=== PATIENT | female | born 2000 | race Caucasian/White ===

== ENCOUNTER 2018-05-20 08:48 | Day surgery (SDC) | payer OTHER ==
[~2018-05-20] VITALS: Ht 157.5 cm; Wt 53.7 kg
[~2018-05-20 08:48] MED LIST: ESCI10 PO; ONDA4ODT MM; ORTHO TRI-CYCL1 EACH PO
== END 2018-05-20 10:58 | disposition home or self-care (01) ==
LOC: ORSCSDS 08:48
PROVIDERS: Internal Medicine Gastroenterology
PROC: 0DBM8ZX Excision of Descending Colon, Via Natural or Artificial Opening Endoscopic, Diagnostic (ICD-10-PCS; principal; 2018-05-20 10:00)
PROC: 0DBP8ZX Excision of Rectum, Via Natural or Artificial Opening Endoscopic, Diagnostic (ICD-10-PCS; principal; 2018-05-20 10:00)
PROC: 0DBN8ZX Excision of Sigmoid Colon, Via Natural or Artificial Opening Endoscopic, Diagnostic (ICD-10-PCS; principal; 2018-05-20 10:00)
DX: K51.90 Ulcerative colitis, unspecified, without complications (principal); R11.2 Nausea with vomiting, unspecified; F41.8 Other specified anxiety disorders; Z79.899 Other long term (current) drug therapy
CPT/HCPCS: 88305; J0330; J1980; J2250; J2405; J7120